=== PATIENT | female | born 1990 | race African-American/Black ===

== ENCOUNTER 2024-01-27 04:43 | Emergency (ER) | payer OTHER ==
[2024-01-27 04:59] VITALS: BP 116/78; PULSE 79; RESP 16; TEMP 97.8; BMI 27.4
[2024-01-27] MEDS ORDERED: predniSONE 10 MG TABLET (UD) ONE (05:31)
[2024-01-27] MEDS ORDERED: diphenhydrAMINE HCL 50 MG CAPSULE ONE (05:31)
[2024-01-27] MEDS: predniSONE 20 MG TABLET (UD) PO ONE (05:33)
[2024-01-27] MEDS: diphenhydrAMINE HCL 50 MG CAPSULE PO ONE (05:33)
== END 2024-01-27 06:25 | disposition home or self-care (01) ==
LOC: FER 04:43
DX: L50.0 Allergic urticaria (principal); T78.1XXA Other adverse food reactions, not elsewhere classified, initial encounter
CPT/HCPCS: 99283-25